=== PATIENT | male | born 1955 | race Two or more races ===

== ENCOUNTER 2019-09-11 15:37 | Emergency (ER) | payer SELFPAY ==
--- NOTE | 2019-09-11 16:13 | EDM.PDOC ---
ED HPI GENERAL MEDICAL PROBLEM - General Chief Complaint: Genitourinary Problem Stated Complaint: UNABLE TO URINATE Time Seen by Provider: 09/11/19 15:42 Source of Information: Reports: Patient History Limitations: Reports: No Limitations - History of Present Illness INITIAL COMMENTS - FREE TEXT/NARRATIVE: HISTORY AND PHYSICAL: History of present illness: Patient is a 64-year-old male who presents to the emergency room with complaints of dysuria and difficulty starting his stream. This morning he woke up and felt like he was having a difficult time starting urinating. As the day went on urinating became easier but had some discomfort associated with it. He does have a past medical history of some prostate enlargement and has seen a urologist in [place]; but states he does not take any medications for this. Patient denies any fever, chills, headache, change in vision, syncope or near syncope. Denies any chest pain, back pain, shortness of breath or cough. Denies any abdominal pain, nausea, vomiting, diarrhea, constipation. Has not noted any blood in urine or stool. Denies any testicular pain, swelling or redness. No new sexual partners or concerns of STDs. Patient has been eating and drinking appropriately. [employer] translation services was used -[place]e to [place] Review of systems: As per history of present illness and below otherwise all systems reviewed and negative. Past medical history: As per history of present illness and as reviewed below otherwise noncontributory. Surgical history: As per history of present illness and as reviewed below otherwise noncontributory. Social history: See social history for further information Family history: As per history of present illness and as reviewed below otherwise noncontributory. Physical exam: General: Well developed and well nourished 64-year-old male. Alert and oriented. Nontoxic-appearing and in no acute distress. HEENT: Atraumatic, normocephalic, pupils equal and reactive bilaterally, negative for conjunctival pallor or scleral icterus, mucous membranes moist, TMs normal bilaterally, throat clear, neck supple, nontender, trachea midline. No drooling or trismus noted. No meningeal signs. No hot potato voice noted. Lungs: Clear to auscultation, breath sounds equal bilaterally, chest nontender. Heart: S1S2, regular rate and rhythm without overt murmur Abdomen: Soft, nondistended, nontender. Negative for masses or hepatosplenomegaly. Negative for costovertebral tenderness. Pelvis: Stable nontender. Genitourinary: WNL Skin: Intact, warm, dry. No lesions or rashes noted. Extremities: Atraumatic, moves all extremities per self without difficulty or deficits, negative for cords or calf pain. Neurovascular unremarkable. Neuro: Awake, alert, oriented. Cranial nerves II through XII unremarkable. Cerebellum unremarkable. Motor and sensory unremarkable throughout. Exam nonfocal. Notes: Patient voided; sample sent to lab. Bladder scanner shows he has 691 mls still in the bladder; he states he feels full. Dr Milan, urologist on-call, was consulted on this case. Will place a Quinones catheter in place him on Cipro over the next [address] Hernandez states he will see him on September 14 at 1:30 PM. We did use the translation services to discuss and review the conversation had with urology and the need for follow- up. Supportive care measures were reviewed and discussed. Voices understanding and is agreeable to plan of care. Denies any further questions or concerns at this time. Diagnostics: UA, Bladder Scanner Therapeutics: Quinones Prescription: Cipro Impression: Urinary Retention Plan: 1. Empty the quinones routinely. 2. Take the antibiotic as directed. 3. Follow up with Dr Milan, urologist on September 14 (Sunday) at 1:15pm. [address] [place] [address]. . Please bring your ID and insurance card if you have one to your appointment. Definitive disposition and diagnosis as appropriate pending reevaluation and review of above. Pelvis Pain Score (Numeric/FACES): 4 - Related Data Allergies Allergy/AdvReac Type Severity Reaction Status Date / Time No Known Allergies Allergy Verified 09/11/19 16:06 Home Meds: Home Meds Insulin NPH/Insulin Reg,Human [NovoLIN 70-30] 3 unit SUBCUT BID 10/23/13 [ History] Ciprofloxacin HCl [Cipro] 250 mg PO BID 3 Days #6 tablet 09/11/19 [Rx] ED ROS GENERAL - Review of Systems Review Of Systems: Comprehensive ROS is negative, except as noted in HPI. ED EXAM, RENAL/ - Physical Exam Exam: See Below (See dictation) Course - Vital Signs Last Recorded V/S: Last Vital Signs Temp 98.3 F 09/11/19 16:07 Pulse 64 09/11/19 16:07 Resp 18 09/11/19 16:07 BP 124/69 09/11/19 16:07 Pulse Ox 97 09/11/19 16:07 - Orders/Labs/Meds Orders: Active Orders 24 hr Category Date Time Status Bladder Scan [RC] ASDIRECTED Care 09/11/19 15:42 Active Quinones Catheter Insertion [Insert Urinary Catheter] [OM. Care 09/11/19 16:45 Ordered PC] Q24H Urinary Catheter Assessment [RC] ASDIRECTED Care 09/11/19 16:35 Active Labs: Laboratory Tests 09/11/19 Range/Units 15:51 Urine Color YELLOW Urine Appearance HAZY Urine pH 5.5 (5.0-8.0) Ur Specific Thorp 1.025 (1.001-1.035) Urine Protein 30 H (NEGATIVE) mg/dL Urine Glucose (UA) >=1000 (NEGATIVE) mg/dL Urine Ketones NEGATIVE (NEGATIVE) mg/dL Urine Occult Blood MODERATE H (NEGATIVE) Urine Nitrite NEGATIVE (NEGATIVE) Urine Bilirubin NEGATIVE (NEGATIVE) Urine Urobilinogen 0.2 (<2.0) EU/dL Ur Leukocyte Esterase NEGATIVE (NEGATIVE) Urine RBC 2-6 (0-2/HPF) Urine WBC 0-2 (0-5/HPF) Ur Epithelial Cells RARE (NONE-FEW) Amorphous Sediment RARE (NEGATIVE) Urine Bacteria RARE (NEGATIVE) Urine Mucus RARE (NONE-MOD) Departure - Departure Time of Disposition: 16:58 Disposition: Home, Self-Care 01 Clinical Impression: Acute urinary retention - Discharge Information Prescriptions: Ciprofloxacin HCl [Cipro] 250 mg PO BID 3 Days #6 tablet Instructions: Acute Urinary Retention, Male, [id number] Referrals: PCP,Not In Area [Primary Care Provider] - Forms: ED Department Discharge Additional Instructions: The following information is given to patients seen in the emergency department who are being discharged to home. This information is to outline your options for follow-up care. We provide all patients seen in our emergency department with a follow-up referral. The need for follow-up, as well as the timing and circumstances, are variable depending upon the specifics of your emergency department visit. If you don't have a primary care physician on staff, we will provide you with a referral. We always advise you to contact your personal physician following an emergency department visit to inform them of the circumstance of the visit and for follow-up with them and/or the need for any referrals to a consulting specialist. The emergency department will also refer you to a specialist when appropriate. This referral assures that you have the opportunity for follow-up care with a specialist. All of these measure are taken in an effort to provide you with optimal care, which includes your follow-up. Under all circumstances we always encourage you to contact your private physician who remains a resource for coordinating your care. When calling for follow-up care, please make the office aware that this follow-up is from your recent emergency room visit. If for any reason you are refused follow-up, please contact the [facility] Emergency Department at and asked to speak to the emergency department charge nurse. [facility] Specialty Care - Urology [address] [place] [id number] 1. Empty the quinones routinely. 2. Take the antibiotic as directed. Available to pickle sorter at [facility]. 3. Follow up with Dr Milan, urologist on September 14 (Sunday) at 1:30pm. Address: [address] [place] [address]. . Arrive a few minutes early: Please bring your ID and insurance card if you have one to your appointment. Sepsis Event Note - Focused Exam Vital Signs: Vital Signs Temp Pulse Resp BP Pulse Ox 09/11/19 16:07 98.3 F 64 18 124/69 97 Date Exam was Performed: 09/11/19 Time Exam was Performed: 17:00 - My Orders Last 24 Hours: My Active Orders 09/11/19 15:42 Bladder Scan [RC] ASDIRECTED 09/11/19 16:35 Urinary Catheter Assessment [RC] ASDIRECTED 09/11/19 16:45 Quinones Catheter Insertion [Insert Urinary Catheter] [OM.PC] Q24H - Assessment/Plan Last 24 Hours: My Active Orders 09/11/19 15:42 Bladder Scan [RC] ASDIRECTED 09/11/19 16:35 Urinary Catheter Assessment [RC] ASDIRECTED 09/11/19 16:45 Quinones Catheter Insertion [Insert Urinary Catheter] [OM.PC] Q24H
== END 2019-09-11 17:33 | disposition home or self-care (01) ==
LOC: MW.ED 15:37
DX: N40.1 Benign prostatic hyperplasia with lower urinary tract symptoms (principal); R33.8 Other retention of urine
CPT/HCPCS: 51702; 51798; 81001; 99282; 99283

== ENCOUNTER 2019-09-13 17:13 | Emergency (ER) | payer SELFPAY | END 2019-09-13 18:51 | disposition home or self-care (01) | LOC: MW.ED 17:13 | DX: T83.098A Other mechanical complication of other urinary catheter, initial encounter (principal) | CPT/HCPCS: 81001; 99283 ==

== ENCOUNTER 2019-09-14 21:15 | Emergency (ER) | payer SELFPAY | END 2019-09-14 21:58 | disposition left against medical advice (07) | LOC: MW.ED 21:15 | DX: Z53.21 Procedure and treatment not carried out due to patient leaving prior to being seen by health care provider (principal) ==

== ENCOUNTER 2021-06-02 21:34 | Emergency (ER) | payer SELFPAY ==
[2021-06-02] MEDS ORDERED: Labetalol 100 MG/20 ML MDV IVPUSH ONE (21:50)
[2021-06-02] MEDS ORDERED: LORazepam 2 MG/ML SDV ONE (21:58)
[2021-06-02] MEDS ORDERED: LORazepam 2 MG/ML SDV IVPUSH PRN (22:03)
[2021-06-02] MEDS ORDERED: niCARdipine/Normal Saline 20 MG/200 ML BAG ONE (22:14)
[2021-06-02] MEDS ORDERED: niCARdipine/Normal Saline 20 MG/200 ML BAG IV SCH (22:15)
[2021-06-02 22:25] LABS: BLOOD UREA NITROGEN,BUN 25 mg/dL (7.0-18.0); CARBON DIOXIDE,CO2 26.1 mmol/L (21.0-32.0); CHLORIDE,CL 102 mmol/L (98-107); GLUCOSE RANDOM 253 mg/dL (74-106); POTASSIUM,K 4.5 mmol/L (3.5-5.1); SODIUM,NA 138 mmol/L (136-148)
[2021-06-02] MEDS ORDERED: Sodium Chloride 0.9% 1,000 ML IV ONE ×3 (22:40→23:57)
[2021-06-02] MEDS ORDERED: Iopamidol 755 MG/ML 500 ML Multipack Bottle IVPUSH STA (23:09)
[2021-06-02] MEDS ORDERED: Digoxin 500 MCG/2 ML Amp IVPUSH ONE (23:59)
[2021-06-03] MEDS ORDERED: LORazepam 2 MG/ML SDV IVPUSH STA (00:14)
[2021-06-03] MEDS ORDERED: LORazepam 2 MG/ML SDV ONE (00:38)
[2021-06-03] MEDS ORDERED: LORazepam 2 MG/ML SDV IVPUSH ONE ×2 (00:43→05:04)
[2021-06-03] MEDS ORDERED: Haloperidol Lactate 5 MG/ML SDV IM ONE ×2 (00:43→02:44)
[2021-06-03] MEDS ORDERED: Haloperidol Lactate 5 MG/ML SDV ONE (00:44)
[2021-06-03] MEDS ORDERED: Digoxin 500 MCG/2 ML Amp IVPUSH ONE (03:21)
[2021-06-03] MEDS ORDERED: Aspirin 300 MG Supp RECTAL STA (06:36)
[2021-06-03] MEDS ORDERED: Magnesium Sulfate/Water 4 GM in Premix Bag 1 BAG IV ONE (08:56)
[2021-06-03 09:07] LABS: BLOOD UREA NITROGEN,BUN 16 mg/dL (7.0-18.0); CARBON DIOXIDE,CO2 22.8 mmol/L (21.0-32.0); CHLORIDE,CL 108 mmol/L (98-107); GLUCOSE RANDOM 264 mg/dL (74-106); POTASSIUM,K 3.9 mmol/L (3.5-5.1); SODIUM,NA 141 mmol/L (136-148)
== END 2021-06-03 11:14 ==
LOC: MW.ED 21:34
DX: G93.40 Encephalopathy, unspecified (principal); I21.4 Non-ST elevation (NSTEMI) myocardial infarction; Z88.0 Allergy status to penicillin
CPT/HCPCS: 36415; 51701; 70450; 70496; 70498; 71045; 80048; 80053; 80305; 80307; 81001; 82009; 82550; 82947; 83605; 83735; 84484; 85025; 85610; 85730; 87040; 87635; 93005; 96365; 96366; 96372; 96375; 96376; 99285; A9270; J1160; J1630; J1953; J2060; J3475; J3490; J7030; Q9967; U0002

== ENCOUNTER 2021-07-02 17:20 | Emergency (ER) | payer MEDICAID ==
[2021-07-02] MEDS ORDERED: Sodium Chloride 0.9% 10 ML Syringe FLUSH PRN (17:21)
[2021-07-02] MEDS ORDERED: Sodium Chloride 0.9% 2.5 ML Syringe FLUSH PRN (17:21)
[2021-07-02 18:06] LABS: BLOOD UREA NITROGEN,BUN 33 mg/dL (7.0-18.0); CARBON DIOXIDE,CO2 22.8 mmol/L (21.0-32.0); CHLORIDE,CL 106 mmol/L (98-107); GLUCOSE RANDOM 118 mg/dL (74-106); POTASSIUM,K 4.5 mmol/L (3.5-5.1); SODIUM,NA 142 mmol/L (136-148)
[2021-07-02] MEDS ORDERED: Fluticasone NASAL Spray 16 GM Bottle NASBOTH STA (19:41)
[2021-07-02] MEDS ORDERED: Aspirin 81 MG Tab.Chew PO ONE (21:56)
[2021-07-02] MEDS ORDERED: Heparin Sodium 5,000 Units/ML Vial IVPUSH ONE (21:59)
[2021-07-02] MEDS ORDERED: Heparin Sodium/0.45% NaCl 500 ML IV SCH (22:00)
[2021-07-03] MEDS ORDERED: Heparin Sodium 5,000 Units/ML Vial IVPUSH ONE (09:15)
== END 2021-07-03 09:21 ==
LOC: MW.ED 17:20
DX: I21.4 Non-ST elevation (NSTEMI) myocardial infarction (principal); I10 Essential (primary) hypertension; I16.1 Hypertensive emergency; E11.9 Type 2 diabetes mellitus without complications; Z88.0 Allergy status to penicillin; Z90.49 Acquired absence of other specified parts of digestive tract; Z79.4 Long term (current) use of insulin; Z79.899 Other long term (current) drug therapy
CPT/HCPCS: 36415; 71045; 80053; 81001; 84484; 85025; 85730; 96365; 99285; A9270; J1644

== ENCOUNTER 2021-08-04 00:19 | Emergency (ER) | payer MEDICARE, MEDICAID ==
[2021-08-04] MEDS ORDERED: Sodium Chloride 0.9% 10 ML Syringe FLUSH PRN (00:24)
[2021-08-04] MEDS ORDERED: Sodium Chloride 0.9% 2.5 ML Syringe FLUSH PRN (00:24)
[2021-08-04 01:26] LABS: BLOOD UREA NITROGEN,BUN 27 mg/dL (7.0-18.0); CARBON DIOXIDE,CO2 21.9 mmol/L (21.0-32.0); CHLORIDE,CL 106 mmol/L (98-107); GLUCOSE RANDOM 99 mg/dL (74-106); POTASSIUM,K 3.7 mmol/L (3.5-5.1); SODIUM,NA 139 mmol/L (136-148)
== END 2021-08-04 02:35 | disposition home or self-care (01) ==
LOC: MW.ED 00:19
DX: E10.65 Type 1 diabetes mellitus with hyperglycemia (principal); I10 Essential (primary) hypertension; Z88.0 Allergy status to penicillin; Z79.899 Other long term (current) drug therapy
CPT/HCPCS: 36415; 80053; 81001; 85025; 93005; 93010; 99283; 99285-25

== ENCOUNTER 2021-08-12 11:18 | Emergency (ER) | payer MEDICARE, MEDICAID ==
[2021-08-12] MEDS ORDERED: Sodium Chloride 0.9% 10 ML Syringe FLUSH PRN (11:40)
[2021-08-12] MEDS ORDERED: Sodium Chloride 0.9% 2.5 ML Syringe FLUSH PRN (11:40)
[2021-08-12 12:46] LABS: BLOOD UREA NITROGEN,BUN 22 mg/dL (7.0-18.0); CARBON DIOXIDE,CO2 27.7 mmol/L (21.0-32.0); CHLORIDE,CL 109 mmol/L (98-107); GLUCOSE RANDOM 102 mg/dL (74-106); POTASSIUM,K 4.1 mmol/L (3.5-5.1); SODIUM,NA 141 mmol/L (136-148)
== END 2021-08-12 18:14 | disposition home or self-care (01) ==
LOC: MW.ED 11:18
DX: R42 Dizziness and giddiness (principal); I10 Essential (primary) hypertension; E10.9 Type 1 diabetes mellitus without complications; Z79.899 Other long term (current) drug therapy; Z79.4 Long term (current) use of insulin; Z20.822 Contact with and (suspected) exposure to COVID-19
CPT/HCPCS: 36415; 70450; 71045; 80053; 80305; 80307; 81001; 82947; 84439; 84443; 84484; 85025; 85610; 93005; 99284; J3490; U0002; 93010

== ENCOUNTER 2022-06-09 13:17 | Emergency (ER) | payer MEDICARE, MEDICAID ==
[2022-06-09 14:19] LABS: CORONAVIRUS COVID-19 NAA NEGATIVE (NEGATIVE); INFLUENZA A NAA NEGATIVE (NEGATIVE); INFLUENZA B NAA NEGATIVE (NEGATIVE)
[2022-06-09] MEDS: Azithromycin 250 MG Tab PO ONE ×2 (14:58→15:57)
== END 2022-06-09 14:55 | disposition home or self-care (01) ==
LOC: MW.ED 13:17
DX: J32.9 Chronic sinusitis, unspecified (principal); I10 Essential (primary) hypertension; E10.9 Type 1 diabetes mellitus without complications; Z79.899 Other long term (current) drug therapy; Z20.822 Contact with and (suspected) exposure to COVID-19
CPT/HCPCS: 0240U; 71046; 99283; A9270

== ENCOUNTER 2022-12-01 06:48 | Day surgery (SDC) | payer MEDICARE, MEDICAID ==
[~2022-12-01 06:48] MED LIST: Lactated Ringers 1,000 ML IV SCH
[2022-12-01] MEDS ORDERED: fentaNYL 100 MCG/2 ML SDV ONE (07:29)
[2022-12-01] MEDS ORDERED: Propofol 200 MG/20 ML SDV ONE (07:29)
[2022-12-01] MEDS ORDERED: EPINEPHrine 1 MG/1 ML Amp ONE (08:11)
[2022-12-01] MEDS ORDERED: ePHEDrine 50 MG/ML SDV ONE (08:11)
[2022-12-01] MEDS ORDERED: Glycopyrrolate 0.2 MG/ML SDV ONE (08:11)
== END 2022-12-01 09:00 | disposition home or self-care (01) ==
LOC: MW.SDS 06:48
PROVIDERS: ATTEND Surgery
DX: Z12.11 Encounter for screening for malignant neoplasm of colon (principal); D12.3 Benign neoplasm of transverse colon; K51.40 Inflammatory polyps of colon without complications; K64.8 Other hemorrhoids; N40.1 Benign prostatic hyperplasia with lower urinary tract symptoms; R35.1 Nocturia; E10.9 Type 1 diabetes mellitus without complications; I10 Essential (primary) hypertension; E78.00 Pure hypercholesterolemia, unspecified; Z79.4 Long term (current) use of insulin; Z79.899 Other long term (current) drug therapy
CPT/HCPCS: 45380; 45385; J2704; J3010; J3490; J7120; 88305; J0171

== ENCOUNTER 2022-12-01 13:59 | Emergency (ER) | payer MEDICARE, MEDICAID | END 2022-12-01 17:10 | disposition home or self-care (01) | LOC: MW.ED 13:59 | DX: R33.9 Retention of urine, unspecified (principal); E78.00 Pure hypercholesterolemia, unspecified; I10 Essential (primary) hypertension; N40.0 Benign prostatic hyperplasia without lower urinary tract symptoms; E10.9 Type 1 diabetes mellitus without complications; Z79.899 Other long term (current) drug therapy | CPT/HCPCS: 51702; 99283 ==

== ENCOUNTER 2022-12-04 15:16 | Emergency (ER) | payer MEDICARE, MEDICAID | END 2022-12-04 16:58 | disposition home or self-care (01) | LOC: MW.ED 15:16 | DX: Z46.6 Encounter for fitting and adjustment of urinary device (principal); E78.00 Pure hypercholesterolemia, unspecified; I10 Essential (primary) hypertension; E10.9 Type 1 diabetes mellitus without complications; Z79.899 Other long term (current) drug therapy | CPT/HCPCS: 99283 ==

== ENCOUNTER 2024-08-03 15:25 | Emergency (ER) | payer MEDICARE, MEDICAID ==
[2024-08-03] MEDS: Tetracaine HCl/PF 0.5% 4 ML Bottle EYEBOTH ONE (16:24)
[2024-08-03] MEDS: Diphtheria,Pertussis(Acell),Tetanus Vaccine 0.5 ML Syringe IM ONE (16:25)
[2024-08-03] MEDS: Fluorescein 1 MG Ophth Strip EYELF ONE (16:45)
== END 2024-08-03 18:12 | disposition home or self-care (01) ==
LOC: MW.ED 15:25
DX: H53.8 Other visual disturbances (principal); I10 Essential (primary) hypertension; E78.00 Pure hypercholesterolemia, unspecified; E10.9 Type 1 diabetes mellitus without complications; Z79.4 Long term (current) use of insulin; Z79.899 Other long term (current) drug therapy; Z75.8 Other problems related to medical facilities and other health care
CPT/HCPCS: 90471; 90715; 99283-25; J3490